=== PATIENT | female | born 1945 | race Caucasian/White ===

== ENCOUNTER → 2017-01-14 | Outpatient (CLI) | payer MEDICARE, BC ==
[~2017-01-14] MED LIST: ALLEGRA ALLERG180 MG PO; AMLODIPINE-BEN1 EAC4 PO; ASPIRIN81 M2 PO; BIOTIN1000 MCG; COZAAR100 MG PO; MACRODANTIN50 MG PO; MULTI VITAMIN1 EACH PO; OMEPRAZOLE20 M1 PO
--- NOTE | ~2017-01-14 | CT4 ---
[facility]. [facility] A Service of [facility] RADIOLOGY TEXT RESULTS PATIENT: LAMBERT SY LOCATION: [facility] [place] : 45 UNIT #: [id number] AGE: [address]: Jewel Chinchilla MD SEX: F ORDER DR: [id number] [place] [id number] O MR#: [id number] Acc #: [id number] NAME: LAMBERT SY : 1945 SEX: F STUDY DATE/TIME: 01/14/2017 10:34 UNIT: [facility] [place] ROOM: STUDY DESCRIPTION: CT Abd and Pelv Wo Cont Attending Physician: Jewel Chinchilla M.D. Referring Physician: Jewel Chinchilla M.D. Ordering Physician: Jewel Chinchilla M.D. Primary Care Physician: Jewel Chinchilla M.D. MEDICAL IMAGING REPORT This report is preliminary unless electronic signature is present. EXAM CT of the abdomen and pelvis without contrast INDICATIONS Nausea, diarrhea and constipation for [address] of the abdomen and pelvis was performed without contrast. Coronal and sagittal reformatted images were obtained. This CT exam was performed with one or more of the following radiation dose reduction techniques: automatic exposure control, adjustment of mA and/or kV according to patient size, and iterative reconstruction. COMPARISON There are no comparison studies available. FINDINGS There are some granulomatous calcifications in the lung bases. The liver is unremarkable. Cholelithiasis. The spleen is unremarkable. The kidneys are unremarkable. There is a curvilinear calcification within the area of the right renal vasculature that may represent a small peripherally calcified renal artery aneurysm. It does measure about 3 mm. This could be correlated with CT angiography. The adrenal glands are unremarkable. The pancreas is unremarkable. PELVIS: The colon is unremarkable. The appendix is normal. No free fluid. The remainder of the pelvis is unremarkable. The bone windows show osteopenia and degenerative change. IMPRESSION 1. Cholelithiasis. [facility] A Service of [facility] RADIOLOGY TEXT RESULTS PATIENT: LAMBERT SY LOCATION: [facility] [place] : 45 UNIT #: [id number] AGE: [address]: Jewel Chinchilla MD SEX: F ORDER DR: 2. There is a crescentic calcification in the region of the right renal vasculature, measuring about 8 mm, which may represent a peripherally calcified renal artery aneurysm. This can be further evaluated with CT angiography. 3. Additional findings as described. Dictated by... Blake Garland M.D. THIS IS AN ELECTRONICALLY VERIFIED REPORT Blake Garland M.D. at 01/15/2017 7:23 PM AGUS/mary TD: 01/14/2017 15:42 JOB #: [id number] MEDICAL IMAGING REPORT Page 1 of 1
== END | disposition home or self-care (01) ==
LOC: SCT 09:44
DX: R10.9 Unspecified abdominal pain (principal); R79.89 Other specified abnormal findings of blood chemistry; K80.20 Calculus of gallbladder without cholecystitis without obstruction; I70.1 Atherosclerosis of renal artery; M85.80 Other specified disorders of bone density and structure, unspecified site
CPT/HCPCS: 74176

== ENCOUNTER → 2017-03-27 | Day surgery (SDC) | payer MEDICARE, BC ==
--- NOTE | ~2017-03-27 | OR ---
Unit #: [id number] #: [id number] Patient: LAMBERT SY [id number] [address] [place], [place] [address] [id number] O MR#: [id number] NAME: LAMBERT SY ROOM: Date of Procedure: 03/27/2017 Admission Date: 03/27/2017 Surgeon: Michael Obrien M.D. : 1945 Attending Physician: Michael Obrien M.D. Referring Physician: Michael Obrien M.D. Primary Care Physician: Jewel Chinchilla M.D. OPERATIVE REPORT PREOPERATIVE DIAGNOSES Dyspepsia, retrosternal ascending heartburn, and epigastric pain. In addition, the patient needs a screening colonoscopy. PROCEDURES PERFORMED Upper gastrointestinal endoscopy and biopsy as well as colonoscopy with polypectomies. POSTOPERATIVE DIAGNOSIS FOR UPPER ENDOSCOPY 1. The patient also has a history of intermittent dysphagia to pills. 2. The patient had distal esophageal mucosal ring. This was dilated using a repeated punch biopsy in the same area of the ring. 3. A small to medium-sized hiatus hernia. 4. Possible postsurgical changes of previous what seem like fundoplication. 5. Prepyloric antral erosive gastritis. A biopsy obtained from the antrum for CLOtest. 6. Rest of the examination up to third part and duodenum was normal. POSTOPERATIVE DIAGNOSES FOR COLONOSCOPY 1. The patient had 2 sessile polyps in the sigmoid colon. These were 5 to 6 mm each, both were removed using snare polypectomy. They were retrieved and sent for Histology. 2. Rest of the examination up to cecum and terminal ileum was normal. The quality of the prep was excellent. RECOMMENDATIONS 1. Increase the dose of omeprazole to 40 mg p.o. daily. 2. Follow up the results of polyp histology and biopsies taken today. 3. Repeat colonoscopy in 5 years. SEDATION USED MAC. DESCRIPTION OF PROCEDURE Following detailed explanation of the potential risks and complications of an upper endoscopy and a colonoscopy, namely perforation, bleeding, and complication related to sedation, the patient was brought to GI lab and laid in the left lateral decubitus position. Lubricated tip of the Olympus video endoscope was passed through bite-block into the proximal esophagus under direct vision. Entire esophageal mucosa was examined. The patient was noted to have distal esophageal mucosal ring with a Unit #: [id number] #: [id number] Patient: LAMBERT SY classic appearance. This was felt to be nonobstructing. In addition, a medium-sized hiatus hernia was noted. The scope was then advanced into the gastric cavity. The latter was insufflated. Mucosa of the fundus, body, and antrum was examined, and prepyloric antral erosions and erythema were noted, indicating antral gastritis. Pylorus was intubated with visualization of the normal duodenal bulb and second and third part of the duodenum. Upon withdrawal and retroflexion, incisura, cardia, and greater curve examined, and a biopsy obtained from the antrum for CLOtest. The scope was then withdrawn in the distal esophagus. Multiple biopsies obtained from the same area of the ring, making it ineffective. The scope was then withdrawn all the way up to pharynx. No additional findings noted. The patient tolerated the procedure without any postprocedure complications. The examination table was then turned by 180 degrees, and the patient positioned for a colonoscopy. A digital rectal examination was performed, which was normal. Lubricated tip of the Olympus video colonoscope was inserted through the anus and advanced under direct vision. The scope was advanced and passed up to sigmoid into descending colon. No diverticula were seen in this area. The scope tip was then navigated all the way up to cecum with visualization of the ileocecal valve and the appendiceal orifice. Preparation was excellent with good visualization, and photodocumentation was obtained. Last several inches of the terminal ileum also visualized after intubation of the ileocecal valve and appeared normal. Successive segments of the colonic mucosa were examined upon withdrawal, and the patient was noted to have 2 sessile polyps, one in the proximal and other in mid sigmoid colon. These were 6 to 7 mm each, both were removed using snare polypectomy. They were retrieved and sent for Histology. No additional polyps noted. The patient did not have any diverticulosis nor any hemorrhoids. The scope was then withdrawn. The patient returned to the recovery area. She tolerated the procedure without any postprocedure complications. Dictated by.Richie Macario TD: 03/28/2017 04:56 JOB #: [id number] OPERATIVE REPORT Page 1 of 1 X Michael Obrien MD PROCEDURE OPERATIVE NOTE
== END | disposition home or self-care (01) ==
LOC: COPS 11:28
DX: Z12.11 Encounter for screening for malignant neoplasm of colon (principal); D12.5 Benign neoplasm of sigmoid colon; K29.00 Acute gastritis without bleeding; K22.2 Esophageal obstruction; K44.9 Diaphragmatic hernia without obstruction or gangrene; I10 Essential (primary) hypertension; I25.10 Atherosclerotic heart disease of native coronary artery without angina pectoris; Z87.440 Personal history of urinary (tract) infections; Z87.891 Personal history of nicotine dependence; Z88.2 Allergy status to sulfonamides; Z91.041 Radiographic dye allergy status; Z79.82 Long term (current) use of aspirin; Z79.899 Other long term (current) drug therapy; Z95.5 Presence of coronary angioplasty implant and graft; Z98.51 Tubal ligation status
CPT/HCPCS: 82947; 87077; 88305